=== PATIENT | female | born 1960 | race Hispanic/Latino ===

== ENCOUNTER 2021-01-26 17:00 | Emergency (ER) | payer OTHER ==
[~2021-01-26] VITALS: Ht 165.1 cm; Wt 90.7 kg
[2021-01-26] MEDS ORDERED: CYCLOBENZAPRINE HCL 10 MG TAB PO ONE (17:15)
[2021-01-26] MEDS ORDERED: HYDROCODONE/APAP 5MG-325MG TAB PO ONE (17:15)
[2021-01-26] MEDS ORDERED: CYCLOBENZAPRINE HCL 10 MG TAB ONE (17:33)
[2021-01-26] MEDS ORDERED: HYDROCODONE/APAP 5MG-325MG TAB ONE (17:33)
[2021-01-26] MEDS ORDERED: NAPROSYN500 MG PO (18:28)
[2021-01-26] MEDS ORDERED: CYCLOBENZAPRINE10 MG PO (18:28)
[2021-01-26] MEDS ORDERED: LIDOCAINE1 EAC1 TD (18:28)
== END 2021-01-26 18:37 | disposition home or self-care (01) ==
LOC: FSED 17:03
DX: M54.6 Pain in thoracic spine (principal); W01.0XXA Fall on same level from slipping, tripping and stumbling without subsequent striking against object, initial encounter; Y93.01 Activity, walking, marching and hiking; E11.9 Type 2 diabetes mellitus without complications
CPT/HCPCS: 72070; 72100